=== PATIENT | male | born 1985 | race African-American/Black ===

== ENCOUNTER 2022-03-04 14:08 | Emergency (ER) | payer OTHER, MEDICAID ==
[2022-03-04] MEDS ORDERED: LIDOCAINE PATCH 5% TOP STA (15:51)
[2022-03-04] MEDS ORDERED: KETOROLAC 30 MG/ML VIAL IM STA (15:51)
[2022-03-04] MEDS ORDERED: methocarbamoL 500 MG TABLET PO STA (15:51)
[2022-03-04] MEDS ORDERED: DEXAMETHASONE 10 MG/ML VIAL IM STA (15:52)
--- NOTE | 2022-03-04 16:10 | XRAY Report ---
PROCEDURE: Hip w/Pelvis 2-3V RT INDICATIONS: hip/back injury TECHNIQUE: AP pelvis with lateral view(s) of the right hip(s). COMPARISON: None. FINDINGS: Bones: Bilateral osteonecrosis of the hips, with severe superimposed left hip degenerative change. N o fractures or dislocations. Pelvic ring appears intact. No suspicious bony lesions. Soft tissues: The visualized bowel gas pattern is normal. No suspicious soft tissue calcifications. IMPRESSION: 1. Bilateral hip avascular necrosis, with severe associated degenerative change involving the left hi p. 2. No evidence acute bony abnormality of the pelvis and right hip. Reviewed by: Porfirio Anton MD on 03/04/2022 4:09 PM PDT Approved by: Porfirio Anton MD on 03/04/2022 4:09 PM PDT Station ID: [id number]
--- NOTE | 2022-03-04 16:12 | XRAY Report ---
PROCEDURE: Lumbar Spine 2 View INDICATIONS: hip/back injury TECHNIQUE: 2 views of the lumbar spine were acquired. COMPARISON: None. FINDINGS: Bones: 5 [id number] vertebrae are present. There is normal bony alignment. No vertebral body compression fractures. No suspicious bony lesions. Question short pedicles at L4 and L5. Soft tissues: Overlying bowel gas pattern is normal. No suspicious soft tissue calcifications. IMPRESSION: No evidence acute bony abnormality of the lumbar spine. Question short pedicles involvin g L4-L5. This may potentially result in canal stenosis. Comment: Depending upon severity of symptoms, nonemergent lumbar spine MRI may helpful. Reviewed by: Porfirio Anton MD on 03/04/2022 4:11 PM PDT Approved by: Porfirio Anton MD on 03/04/2022 4:11 PM PDT Station ID: [id number]
--- NOTE | 2022-03-04 16:21 | ED Physician Documentation ---
PD HPI LOWER EXT INJURY - Stated complaint Stated Complaint: LOW BACK/R HIP PAIN - Chief complaint Chief Complaint: Back Pain - History obtained from History obtained from: Patient - History of Present Illness PD HPI LOW EXT INJURY LOCATION: Right, Hip - Additional information Additional information: 36-year-old male with no significant past medical history presents by private vehicle for evaluation of right hip pain that began after a ground-level fall yesterday. 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 He twisted his leg and ended up falling to the ground. He states that he was somewhat sore yesterday, but today when he woke up he could barely put weight on his right hip. He took Motrin earlier today, and presented here at the request of his workplace for L&I evaluation. Denies numbness, weakness, bowel or bladder incontinence, saddle anesthesia Review of Systems Ten Systems: 10 systems reviewed and negative Constitutional: denies: Fever, Chills Ears: denies: Loss of hearing, Ear pain Nose: denies: Rhinorrhea / runny nose, Foreign Body GI: denies: Abdominal Pain, Abdominal Swelling, Nausea, Vomiting Musculoskeletal: reports: Joint pain (R hip). denies: Neck pain, Back pain, Extremity pain PD PAST MEDICAL HISTORY - Past Medical History Past Medical History: No - Present Medications Home Medications: Ambulatory Orders Medication Instructions Recorded Confirmed Naproxen 250 mg PO BID PRN #15 tablet 03/04/22 methocarbamoL [Robaxin] 500 mg PO Q6H #30 tablet 03/04/22 - Allergies Allergies/Adverse Reactions: Allergies Allergy/AdvReac Type Severity Reaction Status Date / Time No Known Drug Allergies Allergy Verified 03/04/22 14:35 PD ED PE NORMAL - Vitals Vital signs reviewed: Yes - General General: Alert and oriented X 3, No acute distress, Well developed/nourished - HEENT HEENT: Atraumatic, PERRL, EOMI - Neck Neck: Supple, no meningeal sign, No bony TTP, C-Spine cleared by NEXUS criteria - Cardiac Cardiac: RRR, No murmur, Strong equal pulses - Abdomen Abdomen: Soft, Non tender, Non distended - Back Back: No CVA TTP, No spinal TTP - Derm Derm: Normal color, Warm and dry, No rash - Extremities Extremities: Other (R hip generalized tendeness to palpation without crepitus, no deformity) - Neuro Neuro: Alert and oriented X 3, 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 Likely musculoskeletal strain. Patient was given numerous medications in the department with improvement in pain. Incidentally the patient was found to have bilateral osteonecrosis of his hips. Patient denies ever been diagnosed with a medical condition and before today has never had problems with his back or his hips. Patient was informed of this result, he was counseled to follow-up with an orthopedic doctor for further investigation of this finding. Muscle relaxers and anti-inflammatory sent to pharmacy. Departure - Departure Disposition: Home, Self Care Clinical Impression: Strain of hip, Avascular necrosis Condition: Stable Instructions: ED Sprain Hip, ED Spasm Muscle Prescriptions: Naproxen 250 mg PO BID PRN #15 tablet PRN Reason: Pain methocarbamoL [Robaxin] 500 mg PO Q6H #30 tablet Comments: You are seen today for right hip pain after fall yesterday. Your x-rays show findings that indicate you have bilateral osteonecrosis of your hips. This is not related to your workplace accident, however this is likely something that happened a long time ago. I highly recommend that you follow-up with an orthopedic doctor for further investigation of this incidental finding. In the meantime I prescribed muscle relaxers and anti-inflammatories that you may take for pain as needed. You should also take Tylenol with these medications and use gentle stretching exercises for pain relief. Please make sure that you also fol low-up with your primary care physician. Discharge Date/Time: 03/04/22 16:50
[2022-03-04 16:48] VITALS: BP 143/72
== END 2022-03-04 16:50 | disposition home or self-care (01) ==
LOC: ED 14:08
DX: S76.011A Strain of muscle, fascia and tendon of right hip, initial encounter (principal); W18.30XA Fall on same level, unspecified, initial encounter
CPT/HCPCS: 1040M; 72100; 73502; A9270